=== PATIENT | female | born 1980 | race African-American/Black ===

== ENCOUNTER 2024-10-02 11:06 | Emergency (ER) | payer SELFPAY ==
--- NOTE | 2024-10-02 11:34 | ER ---
Nurse's Notes [facility] Name: Rosenda Inman Age: 44 yrs Sex: Female : 1980 Arrival Date: 10/02/2024 Time: 11:06 Bed 12 Private MD: Diagnosis: Essential (primary) hypertension Presentation: 10/02 11:29 Chief complaint: Patient states: "I was trying to get into rehab and they told me my aa5 blood pressure has been high so they told me to come to the ER". Pt reports mild headache at this time. 11:29 Coronavirus screen: At this time, the client does not indicate any symptoms associated aa5 with coronavirus-19. Ebola Screen: Patient denies travel to an Ebola-affected area in the 21 days before illness onset. Initial Sepsis Screen: Does the patient meet any 2 criteria? No. Patient's initial sepsis screen is negative. Does the patient have a suspected source of infection? No. Patient's initial sepsis screen is negative. Risk Assessment: Do you want to hurt yourself or someone else? Patient reports no desire to harm self or others. Onset of symptoms was October 02, 2024. 11:29 Method Of Arrival: Ambulatory aa5 11:29 Acuity: AGNIESZKA 3 aa5 Historical: - Allergies: 11:29 PENICILLINS; aa5 - Home Meds: 11:29 None [Active]; aa5 - PMHx: 11:31 Hypertensive disorder; aa5 - PSHx: 11:29 Appendectomy; aa5 - Immunization history:: Adult Immunizations unknown. - Infectious Disease History:: Denies. - Social history:: Smoking status: Reported history of juuling and/or vaping. Patient uses alcohol, on a daily basis. Assessment: 11:40 General: Appears in no apparent distress. Behavior is calm, cooperative. Pain: Denies iw pain. Neuro: Level of Consciousness is awake, alert, obeys commands, Oriented to person, place, time, situation, Moves all extremities. Full function. Cardiovascular: Patient's skin is warm and dry. Respiratory: Respiratory effort is even, unlabored, Respiratory pattern is regular, symmetrical. Derm: Skin is intact, is healthy with good turgor. Vital Signs: 11:29 BP 164 / 113; Pulse 73; Resp 18 S; Temp 97.8(TE); Pulse Ox 100% on R/A; Weight 106.14 aa5 kg (R); Height 5 ft. 10 in. (R); 11:29 Body Mass Index 33.58 (106.14 kg, 177.8 cm) aa5 ED Course: 11:08 Patient arrived in ED. mr 11:09 Milagros Salas PA-C is PHCP. sb4 11:09 Arjun Deleon MD is Attending Physician. sb4 11:29 Arm band placed on. aa5 11:31 Triage completed. aa5 11:36 Pauly Steiner, RN is Primary Nurse. iw Administered Medications: 11:35 Not Given (Physician Discretion): amlodipine5 mg PO once sb4 11:40 Drug: amLODIPine PO 10 mg PO once Route: PO; iw 11:50 Follow up: Response: No adverse reaction iw Outcome: 11:34 Discharge ordered by . sb4 11:57 Patient left the ED. iw Signatures: Andreea Madden, Reg Reg mr Pauly Steiner, RN RN iw Suyapa Ayala RN RN aa5 Milagros Salas PA-C PA-C sb4 Corrections: (The following items were deleted from the chart) 11:32 11:29 PMHx: None; aa5 aa5 11:32 11:29 Immunization history: Adult Immunizations unknown, aa5 aa5
--- NOTE | 2024-10-02 11:34 | EDPHYS ---
Physician Documentation [facility] Name: Rosenda Inman Age: 44 yrs Sex: Female : 1980 Arrival Date: 10/02/2024 Time: 11:06 Bed 12 Private MD: ED Physician Arjun Deleon HPI: 10/02 11:36 This 44 yrs old Black Female presents to ER via Ambulatory with complaints of High sb4 Blood Pressure. 11:36 patient states that her blood pressure has been running high over the past 2 weeks. For sb4 quite some time. States that she has had a few doctors appointment over the past few weeks and has been 180s over 120s. She denies any headache, blurry vision, dizziness, chest pain, shortness of breath. States that she used to be on antihypertensives a long time ago but has not taken them in several years, is not sure the name of the dosage. States that she is trying to get into rehab and they will not let her until her blood pressure is better controlled. Historical: - Allergies: 11:29 PENICILLINS; aa5 - Home Meds: 11:29 None [Active]; aa5 - PMHx: 11:31 Hypertensive disorder; aa5 - PSHx: 11:29 Appendectomy; aa5 - Immunization history:: Adult Immunizations unknown. - Infectious Disease History:: Denies. - Social history:: Smoking status: Reported history of juuling and/or vaping. Patient uses alcohol, on a daily basis. ROS: 11:36 Constitutional: Negative for fever, chills, and weight loss, sb4 11:36 All other systems are negative, Exam: 11:36 Constitutional: This is a well developed, well nourished patient who is awake, alert, sb4 and in no acute distress. Head/Face: Normocephalic, atraumatic. Eyes: Extra-ocular motions intact. Periorbital areas with no swelling, redness, or edema. ENT: Mucous membranes moist. Cardiovascular: Regular rate and rhythm with a normal S1 and S2. Respiratory: No increased work of breathing, no retractions or nasal flaring. Skin: Warm, dry with normal turgor. Normal color with no rashes, no lesions, and no evidence of cellulitis. 11:36 Respiratory: Breath sounds: are clear throughout, Vital Signs: 11:29 BP 164 / 113; Pulse 73; Resp 18 S; Temp 97.8(TE); Pulse Ox 100% on R/A; Weight 106.14 aa5 kg (R); Height 5 ft. 10 in. (R); 11:29 Body Mass Index 33.58 (106.14 kg, 177.8 cm) aa5 MDM: 11:11 Medical Screening Exam initiated sb4 11:38 Data reviewed: vital signs, nurses notes, and as a result, I will discharge patient. sb4 Counseling: I had a detailed discussion with the patient and/or guardian regarding the historical points, exam findings, and any diagnostic results supporting the discharge/admit diagnosis, the presence of at least one elevated blood pressure reading (>120/80) during this emergency department visit, the need for outpatient follow up, for definitive care, to return to the emergency department if symptoms worsen or persist or if there are any questions or concerns that arise at home. Administered Medications: 11:35 Not Given (Physician Discretion): amlodipine5 mg PO once sb4 11:40 Drug: amLODIPine PO 10 mg PO once Route: PO; iw 11:50 Follow up: Response: No adverse reaction iw Disposition: 12:14 Co-signature as Attending Physician, Arjun Deleon MD I reviewed the patient's care rt provided by the Advanced Practice Provider and agree with the diagnosis and treatment plan. Disposition Summary: 10/02/24 11:34 Discharge Ordered Notes: Location: Home sb4 Problem: new sb4 Symptoms: have improved sb4 Condition: Stable sb4 Diagnosis - Essential (primary) hypertension sb4 Followup: sb4 - With: Private Physician - When: 1 week - Reason: Recheck today's complaints, Re-evaluation by your physician Discharge Instructions: - Discharge Summary Sheet sb4 - Hypertension, Adult, [id number] sb4 - How to Take Your Blood Pressure, [id number] sb4 Forms: - Patient Portal Instructions sb4 - Leadership Thank You Letter sb4 Prescriptions: - amlodipine 10 mg Oral tablet - take 1 tablet ORAL route daily; 30 tablet; Refills: 0, Product Selection sb4 Permitted Signatures: Pauly Steiner RN KARI iw Suyapa Ayala RN RN aa5 Milagros Salas PA-C PA-C sb4 Arjun Deleon MD MD rt Corrections: (The following items were deleted from the chart) PMHx: None; aa5 aa5 Immunization history: Adult Immunizations unknown, aa5 aa5
[2024-10-02] MEDS ORDERED: AMLODIPINE 10 MG TAB ONE (11:38)
[2024-10-02 12:01] VITALS: BP 164/113; TEMP 97.8; O2SAT 100
== END 2024-10-02 11:57 | disposition home or self-care (01) ==
LOC: ER 11:06
DX: I10 Essential (primary) hypertension (principal)
CPT/HCPCS: 99282